=== PATIENT | female | born 1995 | race Caucasian/White ===

== ENCOUNTER 2020-03-22 15:23 | Emergency (ER) | payer MEDICAID ==
[~2020-03-22] VITALS: Ht 165.1 cm; Wt 59.1 kg
[2020-03-22 19:01] VITALS: BP 120/80
== END 2020-03-22 19:20 | disposition home or self-care (01) ==
LOC: EMS 15:28
DX: N63.10 Unspecified lump in the right breast, unspecified quadrant (principal)